=== PATIENT | male | born 1970 | race African-American/Black ===

== ENCOUNTER 2024-10-16 21:08 | Emergency (ER) | payer OTHER ==
[2024-10-16 21:17] VITALS: BP 178/100; PULSE 99; RESP 18; TEMP 98; BMI 46.2
== END 2024-10-16 22:46 | disposition home or self-care (01) ==
LOC: JERFT 21:08
DX: T16.1XXA Foreign body in right ear, initial encounter (principal)
CPT/HCPCS: 99283-25